=== PATIENT | female | born 1955 | race Two or more races ===

== ENCOUNTER 2024-10-05 11:11 | Emergency (ER) | payer MEDICARE, MEDICAID, SELFPAY ==
[2024-10-05 11:13] VITALS: BMI 29.2
[2024-10-05 11:14] VITALS: BP 130/71; PULSE 70; RESP 16; TEMP 36.7; O2SAT 98; BMI 30.2
--- NOTE | 2024-10-05 11:18 | EKG_ITS ---
[facility] [place] Test Date: 2024-10-05 Pat Name: YOVANY BRENNAN Department: Room: - Gender: Female Accounting Representative: : 1955 Requested By: ED Temporary Provider Order Number: [id number] Reading MD: ED Temporary Provider Measurements Intervals Conner Rate: 77 P: 52 NC: 187 QRS: 31 QRSD: 83 T: 36 QT: 368 QTc: 418 Interpretive Statements SINUS RHYTHM WITH OCCASIONAL VENTRICULAR PREMATURE COMPLEXES POSSIBLE LEFT ATRIAL ENLARGEMENT [-0.1mV P WAVE IN V1/V2] LOW QRS VOLTAGE IN PRECORDIAL LEADS [QRS DEFLECTION < 1.0 mV IN CHEST LEADS] SEPTAL MYOCARDIAL INFARCTION , OF INDETERMINATE AGE [40+ ms Q WAVE IN V1/V2] Compared to ECG 08/17/2022 13:48:25 Ventricular premature complex(es) now present Low QRS voltage now present Myocardial infarct finding now present /store/S0/[id number].pdf
--- NOTE | 2024-10-05 11:46 | XR_ITS ---
Examination: CT abdomen and pelvis without contrast. Coronal 3-D reconstructions. Sagittal 2-D reconstructions. Date and time of exam:October 05, 2024 1203 hrs. Indications: Chest pain abdominal pain right arm pain today CTDI: vol (mGy): 9.19 DLP: (mGycm): 484 Technique: Axial images of the abdomen have been obtained, 3 mm slice thickness Intravenous contrast material has not been administered. Low dose protocols were performed. One or more of the following dose reduction techniques were used; automated exposure control, adjustment of the mA and/or KV according to patient size, use of iterative reconstruction technique. Findings: Mild enlargement cardiac contour Liver is mildly irregular in contour no focal liver lesions Contracted gallbladder Spleen is not enlarged No pancreatic or adrenal mass No renal or ureteral calculi, no hydronephrosis Aorta normal size Normal appendix Moderate stool throughout the colon 19 mm fat-containing umbilical hernia No bowel obstruction No diverticulitis Anteverted uterus with 35 mm uterine fundal mass Urinary bladder intact Advanced degenerative disc disease L5-S1 Impression: Suspect primary hepatocellular disease No renal or ureteral calculi, no hydronephrosis Normal appendix No bowel obstruction diverticulitis or free air 35mm uterine fundal mass
--- NOTE | 2024-10-05 11:46 | XR_ITS ---
Examination: PA lateral chest 2 views TECHNIQUE: Upright PA lateral chest 2 views Exam date and time: October 05, 2024 1217 hours INDICATIONS: Onset chest pain today. FINDINGS: Comparison February 04, 2023 Normal heart size Lungs are clear Moderate thoracic spondylosis IMPRESSION: No active disease
--- NOTE | 2024-10-05 11:47 | PD.EDRME ---
Rapid Medical Screening Exam RME Arrival date/time: 10/05/24 11:11 69-year-old female presents emergency department complaints of chest pain Chief Complaint: Chest Pain Vital signs: Vital Signs Temperature 98.1 F 10/05/24 11:14 Pulse Rate 70 10/05/24 11:14 Respiratory Rate 16 10/05/24 11:14 Blood Pressure 130/71 10/05/24 11:14 Pulse Oximetry (%) 98 10/05/24 11:14 Oxygen Delivery Method Room Air 10/05/24 11:14
[2024-10-05 12:40] LABS: Basophils % (Auto) 0 % (0-2.5); Eosinophils # (Auto) 0.1 Thou/mm3 (0.0-0.5); Eosinophils % (Auto) 1 % (0-10); Hematocrit 41.8 % (36.0-46.0); Hemoglobin 14.2 g/dL (12.0-16.0); Immature Granulocytes % (Auto) 0 % (0-0); Immature Granulocytes Auto 0.03 Thou/mm3 (0.00-0.00); Lymphocytes # (Auto) 2.7 Thou/mm3 (1.0-4.8); Lymphocytes % (Auto) 33 % (10-50); Mean Corpuscular Hemoglobin 30.2 pg (25.0-35.0); Mean Corpuscular Volume 89 fL (80-100); Monocytes # (Auto) 0.5 Thou/mm3 (0.0-0.8); Monocytes % (Auto) 7 % (0-12); Neutrophils # (Auto) 4.9 Thou/mm3 (1.8-7.7); Neutrophils % (Auto) 59 % (37-80); Nucleated Red Blood Cell % 0 /100 WBC (0); Platelet Count 231 Thou/mm3 (140-440); RDW Standard Deviation 44.2 fL (36.4-46.3); White Blood Count 8.2 Thou/mm3 (3.6-11.0)
[2024-10-05 12:51] LABS: Partial Thromboplastin Time 27.8 Seconds (22.0-36.0); Prothrombin Time 10.7 Seconds (9.0-12.2)
[2024-10-05 13:04] LABS: Alanine Aminotransferase 21 U/L (10-49); Albumin, Serum 4.6 gm/dL (3.4-4.8); Albumin/Globulin Ratio 1.6 (1.2-2.2); Alkaline Phosphatase 117 U/L (46-116); Anion Gap 7 (7-16); Aspartate Amino Transferase 19 U/L (0-34); B-Type Natriuretic Peptide 27 pg/mL (0-100); BUN/Creatinine Ratio 23 Ratio (12-20); Bilirubin,Total 0.5 mg/dL (0.3-1.2); Blood Urea Nitrogen 18 mg/dL (9-23); Calcium 9.4 mg/dL (8.3-10.6); Calcium (Corrected) 9.4 mg/dL (8.5-10.1); Carbon Dioxide 23.1 mMol/L (20.0-31.0); Chloride 105 mMol/L (98-107); Creatinine (Component) 0.8 mg/dL (0.6-1.3); Estimated Creatinine Clearance 63.7 mL/min (>60); Globulin 2.9 gm/dL (2.3-3.5); Glucose 232 mg/dL (74-106); Lipase 51 U/L (12-53); Osmolality,Calculated 279 (275-295); Potassium 3.6 mMol/L (3.4-5.1); Sodium 135 mMol/L (136-145); Total Protein 7.5 gm/dL (5.7-8.2); Troponin I < 0.002 ng/mL (0.0-0.045); eGFR > 60 See Note
[2024-10-05 13:26] VITALS: BP 116/70; PULSE 65; RESP 16; TEMP 36.7; O2SAT 99
--- NOTE | 2024-10-05 13:44 | EDNOTE_ITS ---
ED General RME/HPI General Chief complaint: Chest Pain Stated complaint: chest pain and abd. pain Time Seen by Provider: 10/05/24 12:52 Arrival date/time: 10/05/24 11:11 CC: Chest pain abdominal pain HPI ongoing from 2006 but worse in the last several days. Daughter states the patient has been taking 2-3 nitros a day for the chest pain has been intermittent in nature. Daughter also reminds me this is the anniversary of her 's . Patient is awake alert oriented currently states she has no chest pain but motions to her entire abdomen as a source of her pain no active nausea or vomiting. Patient is not in any acute distress. RME / HPI RME / HPI narrative: 10/05/24 11:11 69-year-old female presents emergency department complaints of chest pain Related Data Home Medications ?Medication ?Instructions ?Recorded ?Confirmed clopidogrel 75 mg tablet (Plavix) 75 mg PO QDAY 06/30/21 04/02/22 hydrocodone 5 mg-acetaminophen 325 1 tab PO BID PRN Pain 06/30/21 04/02/22 mg tablet insulin aspar prot-insulin aspart 30 unit subcut HS 06/30/21 04/02/22 100 unit/mL (70-30) subcutaneous pen (Novolog Mix 70-30FlexPen U-100) insulin aspar prot-insulin aspart 35 unit subcut QAM 06/30/21 04/02/22 100 unit/mL (70-30) subcutaneous pen (Novolog Mix 70-30FlexPen U-100) lovastatin 40 mg tablet 40 mg PO QPM 06/30/21 04/02/22 metformin 1,000 mg tablet,extended 1,000 mg PO BID 06/30/21 04/02/22 release 24hr (osmotic) nitroglycerin 0.4 mg sublingual 0.4 mg buccal PRN PRN Chest Pain 06/30/21 04/02/22 tablet albuterol sulfate 90 mcg/actuation 2 puff inhalation Q6H PRN 07/11/21 04/02/22 aerosol inhaler (Ventolin HFA) Shortness Of Breath atorvastatin 20 mg tablet 20 mg PO QDAY 07/11/21 04/02/22 baclofen 5 mg tablet 5 mg PO QDAY 07/11/21 04/02/22 diphenhydramine HCl 25 mg tablet 25 mg PO QPM 07/11/21 04/02/22 (Banophen) ibuprofen 600 mg tablet 600 mg PO Q6H PRN Pain 07/11/21 04/02/22 levothyroxine 100 mcg tablet 100 mcg PO QDAY 07/11/21 04/02/22 metoprolol succinate 25 mg 25 mg PO QDAY 07/11/21 04/02/22 tablet,extended release 24 hr Previous Rx's ?Medication ?Instructions ?Recorded tramadol 50 mg tablet 50 mg PO TID PRN pain #20 tabs 01/10/22 polyethylene glycol 3350 17 gram 17 g PO BID #60 ea 04/02/22 oral powder packet (Miralax) ciprofloxacin HCl 500 mg tablet 500 mg PO BID #10 tabs 01/07/23 (Cipro) dicyclomine 20 mg tablet 20 mg PO BID #14 tabs 01/07/23 metronidazole 500 mg tablet 500 mg PO BID #10 tabs 01/07/23 Allergies Allergy/AdvReac Type Severity Reaction Status Date / Time No Known Allergies Allergy Verified 10/05/24 11:17 Review of Systems Review of Systems Narrative Review of Systems: GEN: No fever, no chills, no weight loss EYES: No discharge, no visual changes, no pain HEENT: No ear pain, no congestion, no sore throat PULM: No shortness of breath, no cough, no congestion CV: + chest pain, no dyspnea on exertion, no palpitations GI: No nausea, no vomiting, no diarrhea, + pain, no constipation : No frequency, no urgency, no dysuria MUSC/SKEL: No joint pain, no back pain SKIN: No rash PSYCH: No hallucinations, no depression HEME/LYMPH: No easy bleeding or bruising tendencies NEURO: No weakness, no headache Past Medical History Past Medical History NEUROLOGIC: Negative Seizures CARDIAC: Negative Cardiac Disorders or Congestive Heart Failure RESPIRATORY: Positive Asthma; Negative Chronic Obstructive Pulmonary Disease (COPD) GASTROINTESTINAL: Negative Gastrointestinal Disorders GENITOURINARY: Negative Genitourinary Disorders or Renal Disease MUSCULOSKELETAL: Positive Rheumatoid Arthritis ENDOCRINE: Positive Diabetes Mellitus Type 2 and Hypothyroidism; Negative Diabetes Mellitus Type 1 HEMATOLOGIC: Negative Blood Disorders OTHER HISTORY: Negative Blood Transfusions or Anesthesia Reactions Surgical History SURGICAL: Positive Coronary Stent and Cardiac Catheterization Social History SMOKING STATUS: Never smoker ED Exam Narrative Physical exam: [General: Obese not in any acute distress Head normocephalic HEENT: Within acceptable limits Neck is supple nontender Chest equal chest rise nontender to palpation Respiratory: Clear to auscultation no wheezes crackles or rubs CV: Rate rhythm is regular no murmurs rubs or clicks Abdomen is distended secondary to body habitus soft nontender no masses positive bowel sounds all 4 quadrants Back: No CVA tenderness no spinous process tenderness from cervical spine thoracic and lumbar spine Skin: Intact no petechiae rash induration ulceration or crepitus Extremities: Moving all extremity against resistance cap refill less than 2 seconds neurosensory intact Neuro: Awake alert oriented x3 Glascow coma 15 no focal deficits] Course Quality Measures none Orders Category Date Time Status EKG (ED ONLY) *Do not use* NOW Care 10/05/24 11:[address] abdomen pelvis wo con Stat Exams 10/05/24 11:46 Completed EKG (ED Only) Stat Exams 10/05/24 11:18 Draft XR chest 2V Stat Exams 10/05/24 11:46 Completed B-Type Natriuretic Peptide Stat Lab 10/05/24 12:26 Completed CBC Stat Lab 10/05/24 12:26 Completed Comprehensive Metabolic Panel Stat Lab 10/05/24 12:26 Completed Lipase Stat Lab 10/05/24 12:26 Completed Magnesium Stat Lab 10/05/24 12:26 Completed Partial Thromboplastin Time Stat Lab 10/05/24 12:26 Completed Prothrombin Time with INR Stat Lab 10/05/24 12:26 Completed Troponin I Stat Lab 10/05/24 12:26 Completed Vital Signs Vital signs: Vital Signs Temperature 98.1 F 10/05/24 11:14 Pulse Rate 70 10/05/24 11:14 Respiratory Rate 16 10/05/24 11:14 Blood Pressure 130/71 10/05/24 11:14 Pulse Oximetry (%) 98 10/05/24 11:14 Oxygen Delivery Method Room Air 10/05/24 11:14 [facility] Patient data External records reviewed:: [facility] previous records Clinical information provided by:: patient and family Social determinants that could affect healthcare access:: none Patient has the following chronic illnesses:: Hyperlipidemia Plavix diabetes hypertension How is presenting disease/condition affected by chronic disease/condition?: u neffected by Evaluation data The following diagnostics were reviewed and interpreted by me:: lab results, radiology exam(s) and EKG tracing(s) Lab and/or radiology exams considered but not ordered:: EKG performed at 1128 shows ventricular rate of 77 AK interval of 187 QRS of 8 3 QTc of 400 sinus rhythm with occasional PVC. Troponin is negative CBC shows no acute leukocytosis anemia thrombocytopenia CMP shows elevated glucose level no other electrolyte imbalances renal impairment transaminitis or T. bili elevation Troponin is negative BNP is negative Chest x-ray is unremarkable any acute finding requires emergent or meet intervention as interpreted by me read by radiology CT of the abdomen shows a 35 mm uterine fundal mass, no other acute finding quires emergent or immediate intervention Interpretation Summary: The patient has had a longstanding history of this pain, the patient has been using her nitroglycerin at home without relief of the chest pain, I suspect this is all stress-induced in the daughter thinks it might be secondary to the ancillary anniversary of her 's . Patient will be discharged home to follow-up with her primary care provider and consider an outpatient cardiology consult. They were also advised if there is a worsening of symptoms return the emergency room for reevaluation. Medications Medications considered but not ordered:: None Medication administrations:: None Consultations Consultation(s) initiated? (list below): No Diagnosis Differential Diagnosis ED Complaint MDM: ACS [place] pneumonia Most likely diagnosis given after review of the tests above:: Chest pain uterine mass abdominal pain Admission Indicated Admission indicated?: not indicated Explain why admission is indicated or not indicated:: Stable for outpatient Admission Request Was there a request for admission?: No Disposition Plan Disposition Plan: Discharge Discharge Attestation Discharge Attestation: The patient and all family members were given an opportunity to ask questions and understood the discharge instructions. Discharge instructions specifically effects, indications for sooner follow up or return to the emergency department, and the expected course of current diagnosis. Patient condition: Stable Medical Decision Making Differential Diagnosis Differential Diagnosis: ACS [place] pneumonia Lab Data 10/05/24 12:26 10/05/24 12:26 Labs: Lab Results 10/05/24 Range/Units 12:26 WBC 8.2 (3.6-11.0) Thou/mm3 RBC 4.70 (4.00-5.20) Miln/mm3 Hgb 14.2 (12.0-16.0) g/dL Hct 41.8 (36.0-46.0) % MCV 89 (80-100) fL MCH 30.2 (25.0-35.0) pg MCHC 34.0 (31.0-37.0) g/dl RDW Std Deviation 44.2 (36.4-46.3) fL Plt Count 231 (140-440) Thou/mm3 Neut % (Auto) 59 (37-80) % Lymph % (Auto) 33 (10-50) % Alcorn % (Auto) 7 (0-12) % Eos % (Auto) 1 (0-10) % Baso % (Auto) 0 (0-2.5) % Neut # (Auto) 4.9 (1.8-7.7) Thou/mm3 Lymph # (Auto) 2.7 (1.0-4.8) Thou/mm3 Alcorn # (Auto) 0.5 (0.0-0.8) Thou/mm3 Eos # (Auto) 0.1 (0.0-0.5) Thou/mm3 Baso # (Auto) 0.0 (0.0-0.2) Thou/mm3 Immature Gran # (Auto) 0.03 H (0.00-0.00) Thou/mm3 Absolute Nucleated RBC 0.00 (0.00-0.00) Thou/mm3 Immature Gran % 0 (0-0) % Nucleated RBC % 0 (0) /100 WBC PT 10.7 (9.0-12.2) Seconds INR 1.0 (0.9-1.3) APTT 27.8 (22.0-36.0) Seconds Sodium 135 L (136-145) mMol/L Potassium 3.6 (3.4-5.1) mMol/L Chloride 105 (98-107) mMol/L Carbon Dioxide 23.1 (20.0-31.0) mMol/L Anion Gap 7 (7-16) BUN 18 (9-23) mg/dL Creatinine 0.8 (0.6-1.3) mg/dL Estim Creat Clear Calc 63.7 (>60) mL/min eGFR > 60 (60 - ) See Note BUN/Creatinine Ratio 23 H (12-20) Ratio Glucose 232 H (74-106) mg/dL Calculated Osmolality 279 (275-295) Calcium 9.4 (8.3-10.6) mg/dL Corrected Calcium 9.4 (8.5-10.1) mg/dL Magnesium 2.0 (1.6-2.6) mg/dL Total Bilirubin 0.5 (0.3-1.2) mg/dL AST 19 (0-34) U/L ALT 21 (10-49) U/L Alkaline Phosphatase 117 H (46-116) U/L Troponin I < 0.002 (0.0-0.045) ng/mL B-Natriuretic Peptide 27 (0-100) pg/mL Total Protein 7.5 (5.7-8.2) gm/dL Albumin 4.6 (3.4-4.8) gm/dL Globulin 2.9 (2.3-3.5) gm/dL Albumin/Globulin Ratio 1.6 (1.2-2.2) Lipase 51 (12-53) U/L Discharge Plan Plan Patient Disposition: HOME (Self Care) Prescriptions/Referrals Prescriptions/Med Rec: No Action clopidogrel [Plavix] 75 mg Tablet 75 mg PO QDAY Hold Instructions: Resume on 04/03/22. insulin asp prt-insulin aspart [Novolog Mix 70-30FlexPen U-100] 100 unit/mL (70-30) Insulin Pen 35 unit SUBCUT QAM metformin 1,000 mg Tablet Extended Release 24hr 1,000 mg PO BID hydrocodone-acetaminophen 5-325 mg Tablet 1 tab PO BID PRN (Reason: Pain) Hold Instructions: Resume on 04/03/22. lovastatin 40 mg Tablet 40 mg PO QPM nitroglycerin 0.4 mg Tablet, Sublingual 0.4 mg BUCCAL PRN MDD 3 PRN (Reason: Chest Pain) insulin asp prt-insulin aspart [Novolog Mix 70-30FlexPen U-100] 100 unit/mL (70-30) Insulin Pen 30 unit SUBCUT HS atorvastatin 20 mg Tablet 20 mg PO QDAY levothyroxine 100 mcg Tablet 100 mcg PO QDAY diphenhydramine HCl [Banophen] 25 mg Tablet 25 mg PO QPM metoprolol succinate 25 mg Tablet Extended Release 24 Hr 25 mg PO QDAY ibuprofen 600 mg Tablet 600 mg PO Q6H PRN (Reason: Pain) Hold Instructions: Resume on 04/03/22. albuterol sulfate [Ventolin HFA] 90 mcg/actuation Hfa Aerosol Inhaler 2 puff INHALATION Q6H PRN (Reason: Shortness Of Breath) baclofen 5 mg Tablet 5 mg PO QDAY tramadol 50 mg tablet 50 mg PO TID PRN (Reason: pain) Qty: 20 0RF Hold Instructions: Resume on 04/03/22. polyethylene glycol 3350 [Miralax] 17 gram Powder In Packet 17 g PO BID Qty: 60 3RF Rx Instructions: take 1 tablespoon/packet by mouth in 8 ounces of water twice daily. ciprofloxacin HCl [Cipro] 500 mg tablet 500 mg PO BID Qty: 10 0RF metronidazole 500 mg tablet 500 mg PO BID Qty: 10 0RF dicyclomine 20 mg tablet 20 mg PO BID Qty: 14 0RF Referrals: Mohini Costello MD [Primary Care Provider] - In 1 week Problem List Clinical Impression: Chest pain, Abdominal pain Patient/Caregiver Discharge Instructions Education Materials: Abdominal Pain, ED Chest Pain, Uncertain Cause Additional Instructions: Follow-up with your primary care provider try ibuprofen or Tylenol for chest pain relief if there is worsening of symptoms in spite of the medications return the emergency room for reevaluation. Print Language: Romansh Stand Alone Forms: Taylor Award Info., Patient Portal Info Letter, Work/School Release PA/APPLE PACKING HEADER Supervising Physician PA/APPLE PACKING HEADER Supervising Physician: Noah Urbina ENP
== END 2024-10-05 13:55 | disposition home or self-care (01) ==
PROVIDERS: Nurse Practitioner Primary Care; Emergency Provider Emergency Medicine; PCP Family Medicine
DX: R07.9 Chest pain, unspecified (principal); R10.9 Unspecified abdominal pain; M79.601 Pain in right arm; I49.3 Ventricular premature depolarization
CPT/HCPCS: 36415; 71046; 74176; 80053; 83690; 83735; 83880; 84484; 85025; 85610; 85730; 93005; 99284

== ENCOUNTER 2025-05-31 11:51 | Emergency (ER) | payer MEDICARE, MEDICAID, SELFPAY ==
[2025-05-31 11:53] VITALS: BMI 31.2
[2025-05-31 12:17] VITALS: BP 141/68; PULSE 92; RESP 18; TEMP 37.1; O2SAT 97
--- NOTE | 2025-05-31 12:40 | PD.EDHA ---
ED Headache RME/HPI General Chief Complaint: Headache Stated Complaint: HIT HEAD YESTERDAY S/P TRIP/FALL, + LOC Time Seen by Provider: 05/31/25 12:40 Source: patient and family Arrival date/time: 05/31/25 11:51 Mode of arrival: ambulatory Limitations: no limitations RME / HPI RME / HPI Narrative: Patient fell hitting her head causing a black eye. Also complains of left and right knee pain status post same fall. MD Complaint: headache Onset (ago): day(s) (Yesterday) Associated symptoms: none Related Data Home Medications ?Medication ?Instructions ?Recorded ?Confirmed clopidogrel 75 mg tablet (Plavix) 75 mg PO QDAY 06/30/21 04/02/22 Held on 04/02/22. Instructions: Resume on 04/03/22. hydrocodone 5 mg-acetaminophen 325 1 tab PO BID PRN Pain 06/30/21 04/02/22 mg tablet Held on 04/02/22. Instructions: Resume on 04/03/22. insulin aspar prot-insulin aspart 30 unit subcut HS 06/30/21 04/02/22 100 unit/mL (70-30) subcutaneous pen (Novolog Mix 70-30FlexPen U-100) insulin aspar prot-insulin aspart 35 unit subcut QAM 06/30/21 04/02/22 100 unit/mL (70-30) subcutaneous pen (Novolog Mix 70-30FlexPen U-100) lovastatin 40 mg tablet 40 mg PO QPM 06/30/21 04/02/22 metformin 1,000 mg tablet,extended 1,000 mg PO BID 06/30/21 04/02/22 release 24hr (osmotic) nitroglycerin 0.4 mg sublingual 0.4 mg buccal PRN PRN Chest Pain 06/30/21 04/02/22 tablet albuterol sulfate 90 mcg/actuation 2 puff inhalation Q6H PRN 07/11/21 04/02/22 aerosol inhaler (Ventolin HFA) Shortness Of Breath atorvastatin 20 mg tablet 20 mg PO QDAY 07/11/21 04/02/22 baclofen 5 mg tablet 5 mg PO QDAY 07/11/21 04/02/22 diphenhydramine HCl 25 mg tablet 25 mg PO QPM 07/11/21 04/02/22 (Banophen) ibuprofen 600 mg tablet 600 mg PO Q6H PRN Pain 07/11/21 04/02/22 Held on 04/02/22. Instructions: Resume on 04/03/22. levothyroxine 100 mcg tablet 100 mcg PO QDAY 07/11/21 04/02/22 metoprolol succinate 25 mg 25 mg PO QDAY 07/11/21 04/02/22 tablet,extended release 24 hr Previous Rx's ?Medication ?Instructions ?Recorded tramadol 50 mg tablet 50 mg PO TID PRN pain #20 tabs 01/10/22 Held on 04/02/22. Instructions: Resume on 04/03/22. polyethylene glycol 3350 17 gram 17 g PO BID #60 ea 04/02/22 oral powder packet (Miralax) ciprofloxacin HCl 500 mg tablet 500 mg PO BID #10 tabs 01/07/23 (Cipro) dicyclomine 20 mg tablet 20 mg PO BID #14 tabs 01/07/23 metronidazole 500 mg tablet 500 mg PO BID #10 tabs 01/07/23 Allergies Allergy/AdvReac Type Severity Reaction Status Date / Time No Known Allergies Allergy Verified 05/31/25 11:56 ED Exam General Limitations: Present no limitations Course Course Course Narrative: Patient will have an x-ray of her facial bones as well as left and right knee. Quality Measures none (NA) Orders Category Date Time Status CT head/brain wo con Stat Exams 05/31/25 12:43 Completed XR knee BI 3V Stat Exams 05/31/25 12:47 Completed CBC Stat Lab 05/31/25 13:29 Completed CMP [Comprehensive Metabolic Panel] Stat Lab 05/31/25 13:29 Completed UA [Urinalysis] Stat Lab 05/31/25 13:00 Completed NA Reevaluation(s) Reevaluation #1: NA Vital Signs Vital signs: Vital Signs Temperature 98.7 F 05/31/25 12:17 Pulse Rate 92 05/31/25 12:17 Respiratory Rate 18 05/31/25 12:17 Blood Pressure 141/68 H 05/31/25 12:17 Pulse Oximetry (%) 97 05/31/25 12:17 Oxygen Delivery Method Room Air 05/31/25 12:17 Pulse ox is 97% room air Headache Patient data External records reviewed:: Other (specify) (NA) Clinical information provided by:: none (NA) Social determinants that could affect healthcare access:: none (NA) Patient has the following chronic illnesses:: NA How is presenting disease/condition affected by chronic disease/condition?: no chronic disease (NA) Evaluation data The following diagnostics were reviewed and interpreted by me:: other (specify) (NA) Lab and/or radiology exams considered but not ordered:: NA Interpretation Summary: NA Medications / Prescriptions Medications or Prescriptions considered but not ordered:: NA Medication administrations:: NA Consultations Consultation(s) initiated? (list below): No Diagnosis Differential diagnosis headache: subarachnoid hemorrhage, headache and postconcussion syndrome Most likely diagnosis given after review of the tests above:: NA Admission Indicated Admission indicated?: not indicated Admission Request Was there a request for admission?: No Disposition Plan Disposition Plan: Discharge Discharge Attestation Discharge Attestation: The patient and all family members were given an opportunity to ask questions and understood the discharge instructions. Discharge instructions specifically effects, indications for sooner follow up or return to the emergency department, and the expected course of current diagnosis. Patient condition: Stable Discharge Plan Plan Patient Disposition: HOME (Self Care) Discharge Disposition comment: Discharge in no apparent distress Patient condition on transfer: Stable Prescriptions/Referrals Prescriptions/Med Rec: No Action clopidogrel [Plavix] 75 mg Tablet 75 mg PO QDAY insulin asp prt-insulin aspart [Novolog Mix 70-30FlexPen U-100] 100 unit/mL (70-30) Insulin Pen 35 unit SUBCUT QAM metformin 1,000 mg Tablet Extended Release 24hr 1,000 mg PO BID hydrocodone-acetaminophen 5-325 mg Tablet 1 tab PO BID PRN (Reason: Pain) lovastatin 40 mg Tablet 40 mg PO QPM nitroglycerin 0.4 mg Tablet, Sublingual 0.4 mg BUCCAL PRN MDD 3 PRN (Reason: Chest Pain) insulin asp prt-insulin aspart [Novolog Mix 70-30FlexPen U-100] 100 unit/mL (70-30) Insulin Pen 30 unit SUBCUT HS atorvastatin 20 mg Tablet 20 mg PO QDAY levothyroxine 100 mcg Tablet 100 mcg PO QDAY diphenhydramine HCl [Banophen] 25 mg Tablet 25 mg PO QPM metoprolol succinate 25 mg Tablet Extended Release 24 Hr 25 mg PO QDAY ibuprofen 600 mg Tablet 600 mg PO Q6H PRN (Reason: Pain) albuterol sulfate [Ventolin HFA] 90 mcg/actuation Hfa Aerosol Inhaler 2 puff INHALATION Q6H PRN (Reason: Shortness Of Breath) baclofen 5 mg Tablet 5 mg PO QDAY tramadol 50 mg tablet 50 mg PO TID PRN (Reason: pain) Qty: 20 0RF polyethylene glycol 3350 [Miralax] 17 gram Powder In Packet 17 g PO BID Qty: 60 3RF Rx Instructions: take 1 tablespoon/packet by mouth in 8 ounces of water twice daily. ciprofloxacin HCl [Cipro] 500 mg tablet 500 mg PO BID Qty: 10 0RF metronidazole 500 mg tablet 500 mg PO BID Qty: 10 0RF dicyclomine 20 mg tablet 20 mg PO BID Qty: 14 0RF Referrals: Laquita Solo PA-C [Primary Care Provider] - In 1 week Problem List Clinical Impression: Headache, Contusion of knee Patient/Caregiver Discharge Instructions Discharge Activity: activity as tolerated Print Language: Yoruba Stand Alone Forms: Taylor Award Info., Patient Portal Info Letter PA/GRINDER MACHINE KNIFE SETTER Supervising Physician PA/GRINDER MACHINE KNIFE SETTER Supervising Physician: EASTON
--- NOTE | 2025-05-31 12:43 | XR_ITS ---
Examination: CT brain head without contrast. 2-D sagittal coronal reconstructions Date and time of exam:May 31, 2025 1307 hours Comparison December 03, 2022 INDICATIONS: Syncopal left-sided, patient fell today with injury to the head, head pain CTDI: vol (mGy):48.5 DLP: (mGycm):899 Technique: Multiple CT axial sections of the brain have been obtained, 5 mm slice thickness. Contrast has not been administered. 2-D sagittal, coronal reconstructions have been obtained Low dose protocols were performed. One or more of the following dose reduction techniques were used; automated exposure control, adjustment of the mA and/or KV according to patient size, use of iterative reconstruction technique. Findings: No significant ventricular enlargement. Significant left ethmoid opacification with cortical erosion involving the medial wall of the left orbit, not seen on the December 03, 2022 exam Stable 14 mm calcified left frontal convexity mass Intra-axial or extra-axial hemorrhage density is not seen. No mass effect or midline shift Basal cisterns are not remarkable. Fourth ventricle is midline. Cranial vault intact. Impression: No interval acute hemorrhage, mass effect or midline shift Interval significant opacification left ethmoid air cells with cortical erosion involving the medial wall left orbit Mild thickening of the adjacent medial rectus muscle, differential would include soft tissue tumor in the left ethmoid air cells, recommend elective MRI orbits face neck pre and post contrast follow-up
--- NOTE | 2025-05-31 12:47 | XR_ITS ---
Examination: Knee bilateral, 6 views Technique: Knee AP, lateral, oblique, each knee total 6 views Date and time of exam: May 31, 2025 1532 hours INDICATIONS: Patient fell today with injury of both knees, bilateral knee pain. FINDINGS: No fracture or dislocation involving either knee Bilateral moderate narrowing medial joint spaces IMPRESSION: No fracture or dislocation involving either knee
[2025-05-31 13:17] LABS: Collection Type, Urine Clean Catch
[2025-05-31 13:35] LABS: Bilirubin,Urine Negative (Negative); Blood,Urine 1+ (Negative); Clarity,Urine Clear (Clear/Hazy); Color,Urine Lt-Yellow (Lt Yel-Yel); Glucose, Urine 4+ (Negative); Ketones,Urine Negative (Negative); Leukocyte Esterase,Urine Negative (Negative); Nitrite,Urine Negative (Negative); PH,Urine 5.5 (5.0-7.0); Protein,Urine Negative (Neg - Trace); RBC,Urine 1 /hpf (0-3); Specific Gravity,Urine 1.032 (1.001-1.035); Squamous Epithelial Cell,Urine < 1 /hpf (0-5); Urobilinogen,Urine Negative mg/dL (0.0-1.0); WBC,Urine 1 /hpf (0-5)
[2025-05-31 13:47] LABS: Basophils # (Auto) 0.0 Thou/mm3 (0.0-0.2); Basophils % (Auto) 0 % (0-2.5); Eosinophils # (Auto) 0.1 Thou/mm3 (0.0-0.5); Eosinophils % (Auto) 1 % (0-10); Hematocrit 46.2 % (36.0-46.0); Hemoglobin 15.6 g/dL (12.0-16.0); Immature Granulocytes Auto 0.06 Thou/mm3 (0.00-0.00); Lymphocytes # (Auto) 2.8 Thou/mm3 (1.0-4.8); Lymphocytes % (Auto) 29 % (10-50); Mean Corpuscular HGB Conc 33.8 g/dl (31.0-37.0); Mean Corpuscular Hemoglobin 30.8 pg (25.0-35.0); Mean Corpuscular Volume 91 fL (80-100); Monocytes # (Auto) 0.6 Thou/mm3 (0.0-0.8); Monocytes % (Auto) 6 % (0-12); Neutrophils # (Auto) 6.2 Thou/mm3 (1.8-7.7); Neutrophils % (Auto) 63 % (37-80); Nucleated Red Blood Cell # 0.00 Thou/mm3 (0.00-0.00); Nucleated Red Blood Cell % 0 /100 WBC (0); Platelet Count 254 Thou/mm3 (140-440); RDW Standard Deviation 46.5 fL (36.4-46.3); Red Blood Count 5.06 Miln/mm3 (4.00-5.20); White Blood Count 9.8 Thou/mm3 (3.6-11.0)
[2025-05-31 14:09] LABS: Alanine Aminotransferase 23 U/L (10-49); Albumin, Serum 4.9 gm/dL (3.4-4.8); Albumin/Globulin Ratio 1.5 (1.2-2.2); Alkaline Phosphatase 127 U/L (46-116); Anion Gap 13 (7-16); Aspartate Amino Transferase 25 U/L (0-34); BUN/Creatinine Ratio 14 Ratio (12-20); Bilirubin,Total 0.4 mg/dL (0.3-1.2); Blood Urea Nitrogen 15 mg/dL (9-23); Calcium 9.5 mg/dL (8.3-10.6); Calcium (Corrected) 9.5 mg/dL (8.5-10.1); Carbon Dioxide 25.7 mMol/L (20.0-31.0); Chloride 104 mMol/L (98-107); Creatinine (Component) 1.1 mg/dL (0.6-1.3); Estimated Creatinine Clearance 43.5 mL/min (>60); Globulin 3.2 gm/dL (2.3-3.5); Glucose 189 mg/dL (74-106); Osmolality,Calculated 290 (275-295); Potassium 4.1 mMol/L (3.4-5.1); Sodium 143 mMol/L (136-145); Total Protein 8.1 gm/dL (5.7-8.2); eGFR 55 See Note
== END 2025-05-31 16:01 | disposition home or self-care (01) ==
PROVIDERS: Physician Assistant; Emergency Provider Family Medicine; PCP Physician Assistant
DX: R51.9 Headache, unspecified (principal); S80.00XA Contusion of unspecified knee, initial encounter; W19.XXXA Unspecified fall, initial encounter
CPT/HCPCS: 36415; 70450; 73562; 80053; 81001; 85025; 99284

== ENCOUNTER → 2025-06-29 | Outpatient (CLI) | payer MEDICARE, MEDICAID, SELFPAY ==
[2025-06-29 14:45] LABS: Glucose Estimated Average 192 mg/dL (80-131); Hemoglobin A1C 8.3 % Hgb (4.8-6.0)
[2025-06-29 14:47] LABS: Anion Gap 10 (7-16); BUN/Creatinine Ratio 16 Ratio (12-20); Blood Urea Nitrogen 18 mg/dL (9-23); Calcium 9.2 mg/dL (8.3-10.6); Carbon Dioxide 24.6 mMol/L (20.0-31.0); Chloride 105 mMol/L (98-107); Creatinine (Component) 1.1 mg/dL (0.6-1.3); Glucose 97 mg/dL (74-106); Osmolality,Calculated 281 (275-295); Potassium 4.4 mMol/L (3.4-5.1); Sodium 140 mMol/L (136-145); eGFR 54 See Note
[2025-06-29 14:53] LABS: Creatinine,Random Urine 111 mg/dL (30-125)
== END | disposition home or self-care (01) ==
LOC: COPL 13:37
PROVIDERS: PCP Physician Assistant; Referring Provider Physician Assistant; Visit Provider Physician Assistant
DX: E11.65 Type 2 diabetes mellitus with hyperglycemia (principal); I10 Essential (primary) hypertension
CPT/HCPCS: 36415; 80048; 82570; 83036

== ENCOUNTER → 2025-07-16 | Outpatient (CLI) | payer MEDICARE, MEDICAID, SELFPAY ==
[2025-07-16 12:10] LABS: Albumin, Serum 4.6 gm/dL (3.4-4.8); Anion Gap 13 (7-16); BUN/Creatinine Ratio 9 Ratio (12-20); Blood Urea Nitrogen 7 mg/dL (9-23); Calcium 9.8 mg/dL (8.3-10.6); Calcium (Corrected) 9.8 mg/dL (8.5-10.1); Carbon Dioxide 21.2 mMol/L (20.0-31.0); Chloride 107 mMol/L (98-107); Creatinine (Component) 0.8 mg/dL (0.6-1.3); Glucose 127 mg/dL (74-106); Osmolality,Calculated 281 (275-295); Phosphorous 3.2 mg/dL (2.4-5.1); Potassium 4.3 mMol/L (3.4-5.1); Sodium 141 mMol/L (136-145); eGFR > 60 See Note
== END | disposition home or self-care (01) ==
LOC: COPL 10:22
PROVIDERS: PCP Physician Assistant; Referring Provider Physician Assistant; Visit Provider Physician Assistant
DX: E11.9 Type 2 diabetes mellitus without complications (principal); C31.1 Malignant neoplasm of ethmoidal sinus
CPT/HCPCS: 36415; 80069

== ENCOUNTER → 2025-07-28 | Outpatient (CLI) | payer MEDICARE, MEDICAID, SELFPAY ==
--- NOTE | 2025-07-28 12:00 | XR_ITS ---
Examination: MRI of orbits face neck, without intravenous contrast. MRI of orbits face neck , with intravenous contrast. Exam date and time: July 28, 2025 1322 hours INDICATIONS: Diagnosis malignant neoplasm ethmoid sinus, patient fell this week with injury to the orbits face and neck pain Technique: Multiple axial, sagittal and coronal images of the orbits face neck have been obtained with the Siemens high-resolution 1.5 Amy MRI scanner. Images obtained included T2 weighted fat suppressed sagittal sections, TR 3500, TE 46, T2 weighted coronal fat suppressed images, TR 3050, TE 84, T2-weighted transverse fat suppressed images, TR 30-60, TE 63, proton density transverse images, TR 4720, TE 46, and T1 weighted coronal images, TR 560, TE 13. Axial, sagittal and coronal images are obtained post intravenous injection 14 cc gadolinium. Findings: Extensive magnetic susceptibility defect below the left orbit The optic globes exhibit symmetry The medial left rectus muscle is thickened No retro-orbital mass lesion The optic nerves appear intact Postcontrast images do not demonstrate orbital or retro-orbital enhancement 7th and 8th nerve complexes are intact Pituitary is not enlarged There is no impingement upon the optic chiasm No visualized cerebral enhancement There is significant frontal and ethmoid sinusitis IMPRESSION: The study is significantly limited secondary to magnetic susceptibility artifact as above Recommend CT scan orbits face neck post contrast follow-up
== END | disposition home or self-care (01) ==
LOC: SMRI 11:01
PROVIDERS: PCP Physician Assistant; Referring Provider Physician Assistant; Visit Provider Physician Assistant
DX: S09.93XA Unspecified injury of face, initial encounter (principal); S19.9XXA Unspecified injury of neck, initial encounter; W19.XXXA Unspecified fall, initial encounter; C31.1 Malignant neoplasm of ethmoidal sinus
CPT/HCPCS: 70543; A9577

== ENCOUNTER → 2025-09-21 | Outpatient (CLI) | payer MEDICARE, MEDICAID, SELFPAY ==
[2025-09-21 12:53] LABS: Albumin, Serum 4.4 gm/dL (3.4-4.8); Anion Gap 10 (7-16); BUN/Creatinine Ratio 16 Ratio (12-20); Blood Urea Nitrogen 13 mg/dL (9-23); Calcium 9.4 mg/dL (8.3-10.6); Calcium (Corrected) 9.4 mg/dL (8.5-10.1); Carbon Dioxide 26.3 mMol/L (20.0-31.0); Chloride 105 mMol/L (98-107); Creatinine (Component) 0.8 mg/dL (0.6-1.3); Glucose 204 mg/dL (74-106); Osmolality,Calculated 287 (275-295); Phosphorous 3.1 mg/dL (2.4-5.1); Potassium 4.2 mMol/L (3.4-5.1); Sodium 141 mMol/L (136-145); eGFR > 60 See Note
== END | disposition home or self-care (01) ==
LOC: SCAT 11:14
PROVIDERS: PCP Physician Assistant; Referring Provider Physician Assistant; Visit Provider Physician Assistant
DX: C31.1 Malignant neoplasm of ethmoidal sinus (principal); E11.65 Type 2 diabetes mellitus with hyperglycemia
CPT/HCPCS: 36415; 80069

== ENCOUNTER → 2025-09-23 | Outpatient (CLI) | payer MEDICARE, MEDICAID, SELFPAY ==
--- NOTE | 2025-09-23 10:00 | XR_ITS ---
Examination: CT soft tissue neck, with intravenous contrast. 2-D coronal reconstructions. 2-D sagittal reconstructions. Date and time of exam : September 23, 2025, 10:57 a.m, comparison MRI orbits face neck 07/28/2025 INDICATIONS: Diagnosis malignant neoplasm ethmoid sinus. CTDI: vol (mGy): 14 DLP: (mGycm): 347 Technique: 1.25 mm axial sections of the neck of the obtained. Coronal and sagittal reconstructions have been obtained. Intravenous contrast administered 60 cc Isovue-370. Low dose protocols were performed. One or more of the following dose reduction techniques were used; automated exposure control, adjustment of the mA and/or KV according to patient size, use of iterative reconstruction technique. Findings: Chronic sinus disease in the ethmoid air cells Blowout fracture medial wall left orbit No enhancing soft tissue tumor mass involving the ethmoid air cells Significant hypertrophy left inferior nasal turbinate Mild deviation nasal septum to the right Old fracture medial wall left orbit Optic globes exhibits symmetry No enhancing nasopharyngeal or oropharyngeal mass The larynx appears normal No pathologic carotid triangle or submental cervical lymphadenopathy Symmetrical thyroid lobes The epiglottis does not appear enlarged On this study nasopharyngeal soft tissue does not exhibit significant Satisfactory alignment cervical vertebral bodies prominence IMPRESSION: No enhancing ethmoid air cell tumor noted No enhancing oropharyngeal or nasopharyngeal mass Normal larynx
--- NOTE | 2025-09-23 10:00 | XR_ITS ---
Examination: CT maxillofacial, with contrast 2-D sagittal and coronal reconstructions. 3-D reconstructions Date and time of exam: September 23, 2025, 1053 hours INDICATIONS: Diagnosis malignant neoplasm ethmoid sinus, MRI orbits face neck 07/28/2025 Limited by magnetic susceptibility artifact CTDI: vol (mGy): 30.2 DLP: (mGycm): 546 Technique: Multiple axial images maxillofacial region, 3.0 mm slice thickness, post intravenous injection 60 cc Isovue 370. 2-D sagittal coronal reconstructions. 3-D reconstructions Low dose protocols were performed. One or more of the following dose reduction techniques were used; automated exposure control, adjustment of the mA and/or KV according to patient size, use of iterative reconstruction technique. Findings: Frontal bone and frontal sinuses intact Mild mucosal thickening in the ethmoid air cells, no enhancing soft tissue tumor mass in the ethmoid air cells currently Mild sphenoid chronic sinusitis The optic globes exhibit symmetry Old blowout fracture medial left orbital wall Symmetrical optic nerves No retro-orbital enhancing mass lesion Mastoid air cells intact with no acute mastoiditis Symmetrical internal auditory canals Moderate hypertrophy left inferior nasal turbinate Deviation nasal septum to the right 6 mm Moderate hypertrophy middle turbinates Pterygoid plates and maxilla intact Mild prominence of the nasopharynx, sagittal image 46, measuring 11 mm in thickness Epiglottis detail is obscured by patient motion IMPRESSION: No enhancing soft tissue tumor mass in the ethmoid air cells Chronic ethmoid sphenoid sinusitis Mild soft tissue prominence of the nasopharynx, 11 mm, clinical correlation advised No enhancing nasopharyngeal or oropharyngeal mass The larynx appears normal
== END | disposition home or self-care (01) ==
PROVIDERS: PCP Physician Assistant; Referring Provider Physician Assistant; Visit Provider Physician Assistant
DX: J32.3 Chronic sphenoidal sinusitis (principal); M79.9 Soft tissue disorder, unspecified; C31.1 Malignant neoplasm of ethmoidal sinus
CPT/HCPCS: 70487; 70491; A4649; Q9967